=== PATIENT | female | born 1960 | race Caucasian/White ===

== ENCOUNTER 2018-05-29 13:57 | Outpatient (CLI) | payer OTHER ==
--- NOTE | 2018-05-29 16:24 | CT ---
CT OF THE ABDOMEN AND PELVIS WITH IV CONTRAST 05/29/18 PROVIDED CLINICAL HISTORY: History of Crohn's disease, hematochezia. FINDINGS: No comparisons. The visualized lung bases are free of significant opacity. There is a small hiatal hernia. Parapelvic cyst formation is seen involving the left kidney. The solid abdominal organs demonstrate another wis e unremarkable. CT appearance. There is no bowel dilatation, inflammatory fat stranding, free fluid or lymph node enlargement appare nt within the abdomen or pelvis. There is as large peripherally enhancing fluid collection within the gluteal and ischial rectal conor a fat. Within the gluteal fat, right and left of midline and extending to involve the left ischial re ctal fossa fat left of midline about the anus. There is a fluid density channel from this fluid colle ction inferiorly and medially to The skin surface at the inferior aspects of the right gluteal fat at the dao cleft. Fluid collection demonstrates rim enhancement and measures about 9.6 x 4.9 cm in gr eatest transverse dimensions and about 7.5 cm in craniocaudal dimension. The osseous structures demonstrate no concerning lytic or blastic lesions. IMPRESSION: Findings compatible with perianal abscess with associated sinus tracts to the right gluteal subcutane ous adipose layer at the cleft inferiorly. Findings are communicated to the referring clinician 's office at 1627, 05/29/18. Code CR POS: OFF
== END 2018-05-29 13:58 | disposition home or self-care (01) ==
LOC: CT 13:57
PROVIDERS: ATTEND Internal Medicine Gastroenterology
DX: K50.90 Crohn's disease, unspecified, without complications (principal)
CPT/HCPCS: 74177